=== PATIENT | female | born 1945 | race Caucasian/White ===

== ENCOUNTER 2016-04-11 10:52 | Emergency (ER) | payer MEDICARE ==
[~2016-04-11] VITALS: Ht 167.6 cm; Wt 62.8 kg
[~2016-04-11 10:52] MED LIST: DARV PO; HORMONE PATCH; MACR100C PO; NAPR500 PO; PYRI200T4 PO
[2016-04-11 10:55] VITALS: BP 141/77; PULSE 99; RESP 16; TEMP 98; O2SAT 97
--- NOTE | 2016-04-11 11:22 | PD ---
HPI Chief Complaint: Abnormal Results Time Seen by Provider: 11:01 Travel History International Travel<30 days: No Contact w/Intl Traveler<30days: No Traveled to known affect area: No History of Present Illness HPI The patient was seen and examined in the presence of the nurse. This patient takes Coumadin for A. fib. She has a fingerstick INR machine at home and it read 8 today. 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 She does not have any bleeding complaints or problems. She feels well. Severity is mild. No alleviating factors. Duration one day. She has been going through some Coumadin adjustments and is currently taking 7.5 mg daily PFSH Past Medical History Hx Anticoagulant Therapy: Yes (coumadin) Atrial Fibrillation: Yes Anxiety: Yes High Cholesterol: Yes GERD: Yes (ESOPHAGEAL EROSION) Hypertension: Yes ?: Not Past Surgical History Hysterectomy: Yes Social History Alcohol Use: Yes (2 MARTINIS DAILY) Tobacco Use: No Substance Use: No Allergies-Medications (Allergen,Severity, Reaction): Coded Allergies: Codeine (Verified Allergy, Intermediate, NAUSEA, 04/11/16) Naproxen (Verified Adverse Reaction, Severe, nausea, 04/11/16) Tramadol (Verified Adverse Reaction, Severe, nausea, 04/11/16) Reported Meds & Prescriptions Reported Meds & Active Scripts Active Reported Losartan-Hydrochlorothiazide 100-25 Mg Tab 1 Tab PO DAILY Simvastatin 20 Mg Tab 20 Mg PO HS Atenolol 25 Mg Tab 25 Mg PO HS Warfarin 7.5 Mg Tab 7.5 Mg PO HS Primidone 50 Mg Tab 100 Mg PO HS Omeprazole 20 Mg Tab 20 Mg PO DAILY Doxycycline Hyclate 100 Mg Cap 100 Mg PO BID Xanax (Alprazolam) 0.25 Mg Tab 0.25 Mg PO TID PRN Medrol Dosepak (Methylprednisolone) 4 Mg Dspk 4 Mg PO DIRECTED Per Pharmacist direction Metformin (Metformin HCl) 500 Mg Tab 500 Mg PO BIDPC With meals Gabapentin 100 Mg Cap 200 Mg PO TID Wellbutrin SR 12 HR (Bupropion HCl) 100 Mg Tab 100 Mg PO DAILY Review of Systems General / Constitutional: No: Fever Eyes: No: Visual changes HENT: No: Headaches Cardiovascular: Positive: Irregular Rhythm, No: Chest Pain or Discomfort Respiratory: No: Shortness of Breath Gastrointestinal: No: Abdominal Pain Genitourinary: No: Dysuria Musculoskeletal: No: Pain Skin: No Rash Neurologic: No: Weakness Psychiatric: No: Depression Endocrine: No: Polydipsia Hematologic/Lymphatic: No: Easy Bruising Physical Exam Narrative GENERAL: Well-nourished, well-developed patient in no apparent distress. SKIN: Warm and dry. HEAD: Atraumatic. Normocephalic. EYES: Pupils equal and round. No scleral icterus. No injection or drainage. ENT: No nasal bleeding or discharge. Mucous membranes pink and moist. NECK: Trachea midline. No JVD. CARDIOVASCULAR: Irregularly irregular rhythm. No murmur appreciated. RESPIRATORY: No accessory muscle use. Clear to auscultation. Breath sounds equal bilaterally. GASTROINTESTINAL: Abdomen soft, non-tender, nondistended. Hepatic and splenic margins not palpable. MUSCULOSKELETAL: No obvious deformities. No clubbing. No cyanosis. No edema. NEUROLOGICAL: Awake and alert. No obvious cranial nerve deficits. Motor grossly within normal limits. Normal speech. PSYCHIATRIC: Appropriate mood and affect; insight and judgment normal. Data Data Last Documented VS Vital Signs Date Time Temp Pulse Resp B/P Pulse Ox O2 Delivery O2 Flow Rate FiO2 04/11/16 11:10 99 18 Room Air 04/11/16 10:55 98.0 141/77 97 Orders Prothrombin Time / Inr (Pt) (04/11/16 11:17) Labs Laboratory Tests Test 04/11/16 11:25 Prothrombin Time 103.7 SEC Prothromb Time International 8.5 RATIO Ratio MDM Medical Decision Making Medical Screen Exam Complete: Yes Emergency Medical Condition: Yes Medical Record Reviewed: Yes Differential Diagnosis Supratherapeutic INR, medication side effect, allergic reaction Narrative Course I have reviewed the patient's electronic medical record. INR today on Coumadin is 8.5 She does not have any bleeding As she has no bleeding and an INR less than 10, I recommended she hold Coumadin and let the level drift down. Be careful and cautious and obtain a repeat INR in a couple of days. Diagnosis Primary Impression: Supratherapeutic INR Additional Instructions: Be careful and cautious with an elevated INR Obtain repeat INR from your physician in a couple of days Do not take Coumadin Med/Other Pt SpecificInfo: Other Disposition: 01 DISCHARGE HOME Condition: Stable Shaun Gonzalez MD Apr 11, 2016 11:21
[2016-04-11] MEDS ORDERED: BUPR100CR PO (11:30)
[2016-04-11] MEDS ORDERED: GABA100C4 PO (11:30)
[2016-04-11] MEDS ORDERED: METF500T PO (11:30)
[2016-04-11] MEDS ORDERED: ALPR.25 PO (11:31)
[2016-04-11] MEDS ORDERED: SIMV20TA PO (11:31)
[2016-04-11] MEDS ORDERED: ATEN25TA PO (11:31)
[2016-04-11] MEDS ORDERED: OMEP20TA PO (11:31)
[2016-04-11] MEDS ORDERED: MEDR4PAK PO (11:31)
[2016-04-11] MEDS ORDERED: LOSA100T2 PO (11:31)
[2016-04-11] MEDS ORDERED: WARF-21 PO (11:31)
[2016-04-11] MEDS ORDERED: PRIM50TA5 PO (11:31)
[2016-04-11] MEDS ORDERED: DOXY100C PO (11:31)
[2016-04-11 11:54] LABS: PROTHROMBIN TIME - PATIENT 103.7 SEC (9.8-11.6)
[2016-04-11 11:57] LABS: INTERNATIONAL NORMALIZED RATIO 8.5 RATIO
== END 2016-04-11 13:47 | disposition home or self-care (01) ==
LOC: PHED 10:52
DX: R79.1 Abnormal coagulation profile (principal); I48.91 Unspecified atrial fibrillation; I10 Essential (primary) hypertension; Z79.01 Long term (current) use of anticoagulants
CPT/HCPCS: 85610; 99283

== ENCOUNTER 2016-09-04 21:24 | Emergency (ER) | payer MEDICARE ==
[~2016-09-04] VITALS: Ht 167.6 cm; Wt 62.5 kg
[~2016-09-04 21:24] MED LIST changes: +ALPR.25 PO; +ATEN25TA PO; +BUPR100CR PO; -DARV PO; +DOXY100C PO; +GABA100C4 PO; -HORMONE PATCH; +LOSA100T2 PO; -MACR100C PO; +MEDR4PAK PO; +METF500T PO; -NAPR500 PO; +OMEP20TA PO; +PRIM50TA5 PO; -PYRI200T4 PO; +SIMV20TA PO; +WARF-21 PO
[2016-09-04 21:59] VITALS: BP 116/70; PULSE 69; RESP 18; TEMP 98; O2SAT 97
[2016-09-04] MEDS ORDERED: ESTR0.62 VAGINAL (22:31)
[2016-09-04] MEDS ORDERED: TOPI1TAB97 PO (22:31)
--- NOTE | 2016-09-04 22:57 | PD ---
HPI Chief Complaint: Abdominal Pain Time Seen by Provider: 22:51 Travel History International Travel<30 days: No Contact w/Intl Traveler<30days: No Traveled to known affect area: No History of Present Illness HPI 71-year-old female presents to the emergency department for complaint of progressively worsening left lower quadrant abdominal pain and intermittent upper abdominal pain times one week. Patient is currently taking Cipro for urinary tract infection and was seen by her urologist this week. Patient completes her course of Cipro on Thursday and then will go on maintenance suppressant low-dose antibiotic times one month. Patient denies fever chills has had nausea no vomiting or diarrhea. Patient rates left lower quadrant abdominal pain 5/10 in intensity. Patient denies any flank pain dysuria frequency urgency hematuria or vaginal discharge. Patient is status post hysterectomy. Patient has had no injury or fall. Patient is unable to identify exacerbating or alleviating factors. Patient states that she fell and became tired of having ongoing pain and decided to come to the emergency room at this time for further evaluation. [facility] Past Medical History Narrative Medical Coumadin therapy, anxiety, arthritis, atrial fibrillation, dyslipidemia, GERD, recurrent UTI, hysterectomy; occasional alcohol use; nursing notes reviewed Hx Anticoagulant Therapy: Yes (coumadin) Atrial Fibrillation: Yes Anxiety: Yes Heart Rhythm Problems: Yes (AFIB) High Cholesterol: Yes Diminished Hearing: No GERD: Yes (ESOPHAGEAL EROSION) Hypertension: Yes Past Surgical History Hysterectomy: Yes Social History Alcohol Use: Yes (OCC) Tobacco Use: No (NEVER) Substance Use: No Allergies-Medications (Allergen,Severity, Reaction): Coded Allergies: Codeine (Verified Allergy, Intermediate, NAUSEA, 09/04/16) Naproxen (Verified Adverse Reaction, Severe, nausea, 09/04/16) Tramadol (Verified Adverse Reaction, Severe, nausea, 09/04/16) Reported Meds & Prescriptions Reported Meds & Active Scripts Active Reported Premarin Vaginal (Estrogens, Conjugated Vaginal) 0.625 Mg/Gm Cream 1 Gm VAGINAL DAILY Topiramate 25 Mg Tab 25 Mg PO DAILY Losartan-Hydrochlorothiazide 100-25 Mg Tab 1 Tab PO DAILY Simvastatin 20 Mg Tab 20 Mg PO HS Atenolol 25 Mg Tab 25 Mg PO HS Warfarin 7.5 Mg Tab 5 Mg PO HS Primidone 50 Mg Tab 100 Mg PO HS Omeprazole 20 Mg Tab 20 Mg PO DAILY Xanax (Alprazolam) 0.25 Mg Tab 0.5 Mg PO TID PRN Metformin (Metformin HCl) 500 Mg Tab 500 Mg PO BIDPC With meals Gabapentin 100 Mg Cap 200 Mg PO TID Wellbutrin SR 12 HR (Bupropion HCl) 100 Mg Tab 100 Mg PO DAILY Review of Systems Except as stated in HPI: all other systems reviewed are Neg General / Constitutional: No: Fever, Chills HENT: No: Congestion Cardiovascular: No: Chest Pain or Discomfort, Palpitations, Diaphoresis, Syncope, Dyspnea on exertion, Edema Respiratory: No: Cough, Shortness of Breath, Wheezing Gastrointestinal: Positive: Nausea, Abdominal Pain, Constipation, No: Vomiting , Diarrhea, Hematemesis, Hematochezia, Loss of Appetite Genitourinary: No: Urgency, Frequency, Dysuria, Pelvic Pain, Flank Pain Musculoskeletal: No: Myalgias, Arthralgias Skin: No Rash Neurologic: No: Weakness Psychiatric: Positive: Anxiety Endocrine: No: Heat Intolerance, Cold Intolerance Hematologic/Lymphatic: No: Easy Bruising Physical Exam Narrative GENERAL: Well-developed well-nourished female in acute distress no respiratory distress SKIN: Warm and dry. HEAD: Normocephalic. EYES: No scleral icterus. No injection or drainage. NECK: Supple, trachea midline. No JVD or lymphadenopathy. CARDIOVASCULAR: Regular rate and rhythm without murmurs, gallops, or rubs. RESPIRATORY: Breath sounds equal bilaterally. No accessory muscle use. GASTROINTESTINAL: Abdomen soft, left lower quadrant tenderness to palpation without guarding or rebound or palpable pulsatile mass, nondistended. MUSCULOSKELETAL: No cyanosis, or edema. BACK: Nontender without obvious deformity. No CVA tenderness. Data Data Last Documented VS Vital Signs Date Time Temp Pulse Resp B/P Pulse Ox O2 Delivery O2 Flow Rate FiO2 09/04/16 23:32 84 17 114/61 100 Room Air 09/04/16 21:59 98.0 Orders Complete Blood Count With Diff (09/04/16 22:51) Comprehensive Metabolic Panel (09/04/16 22:51) Lipase (09/04/16 22:51) Lactic Acid (09/04/16 22:51) Urinalysis - C+S If Indicated (09/04/16 22:51) Ct Abd/Pel W Iv Contrast(Rout) (09/04/16 22:51) Iv Access Insert/Monitor (09/04/16 22:51) Ecg Monitoring (09/04/16 22:51) Oximetry (09/04/16 22:51) Ondansetron Inj (Zofran Inj) (09/04/16 23:00) Sodium Chloride 0.9% Flush (Ns Flush) (09/04/16 23:00) Sodium Chlor 0.9% 1000 Ml Inj (Ns 1000 M (09/04/16 23:00) Prothrombin Time / Inr (Pt) (09/04/16 22:51) Iohexol 350 Inj (Omnipaque 350 Inj) (09/05/16 00:08) Labs Laboratory Tests Test 09/04/16 23:05 White Blood Count 7.1 TH/MM3 Red Blood Count 4.55 MIL/MM3 Hemoglobin 13.6 GM/DL Hematocrit 40.5 % Mean Corpuscular Volume 89.2 FL Mean Corpuscular Hemoglobin 30.0 PG Mean Corpuscular Hemoglobin 33.6 % Concent Red Cell Distribution Width 12.9 % Platelet Count 231 TH/MM3 Mean Platelet Volume 8.5 FL Neutrophils (%) (Auto) 57.9 % Lymphocytes (%) (Auto) 31.2 % Monocytes (%) (Auto) 7.3 % Eosinophils (%) (Auto) 2.1 % Basophils (%) (Auto) 1.5 % Neutrophils # (Auto) 4.2 TH/MM3 Lymphocytes # (Auto) 2.2 TH/MM3 Monocytes # (Auto) 0.5 TH/MM3 Eosinophils # (Auto) 0.1 TH/MM3 Basophils # (Auto) 0.1 TH/MM3 CBC Comment DIFF FINAL Differential Comment Prothrombin Time 28.0 SEC Prothromb Time International 2.4 RATIO Ratio Urine Color YELLOW Urine Turbidity SLIGHT Urine pH 6.5 Urine Specific [place] 1.012 Urine Protein NEG mg/dL Urine Glucose (UA) NEG mg/dL Urine Ketones NEG mg/dL Urine Occult Blood NEG Urine Nitrite NEG Urine Bilirubin NEG Urine Leukocyte Esterase TRACE Urine RBC 0-3 /hpf Urine WBC 3-5 /hpf Urine Squamous Epithelial > 8 /hpf Cells Urine Bacteria OCC /hpf Microscopic Urinalysis Comment CULT NOT INDICATED Sodium Level 135 MEQ/L Potassium Level 3.8 MEQ/L Chloride Level 97 MEQ/L Carbon Dioxide Level 28.9 MEQ/L Anion Gap 9 MEQ/L Blood Urea Nitrogen 15 MG/DL Creatinine 1.00 MG/DL Estimat Glomerular Filtration 55 ML/MIN Rate Random Glucose 95 MG/DL Lactic Acid Level 3.1 mmol/L Calcium Level 8.5 MG/DL Total Bilirubin 0.4 MG/DL Aspartate Amino Transf 31 U/L (AST/SGOT) Alanine Aminotransferase 29 U/L (ALT/SGPT) Alkaline Phosphatase 89 U/L Total Protein 6.7 GM/DL Albumin 3.3 GM/DL Lipase 139 U/L MDM Medical Decision Making Medical Screen Exam Complete: Yes Emergency Medical Condition: Yes Medical Record Reviewed: Yes Interpretation(s) CBC & BMP Diagram 09/04/16 23:05 Vital Signs Date Time Temp Pulse Resp B/P Pulse Ox O2 Delivery O2 Flow Rate FiO2 09/04/16 23:32 84 17 114/61 100 Room Air 09/04/16 22:18 09/04/16 21:59 98.0 69 18 116/70 97 UA few bacteria; cx not indicated Last Impressions Abdomen/Pelvis CT 09/04/16 [id number] Signed Impressions: Service Date/Time: , September 04, 2016 23:45 - CONCLUSION: 1. Diverticulosis without diverticulitis. 2. No inflammatory changes are seen within the abdomen or pelvis. 3. Atherosclerosis. 4. 5. Low-density liver lesions. Follow-up imaging in six months, using CT or MRI without and with contrast is recommended for incidentally detected liver lesions in average risk individuals when lesions are characterized by diameter of 0.5-1.5 cm, low attenuation, and some non-benign characteristics (such as ill-defined margins, enhancement >20 HU, heterogeneous density, or enlargement). This patient is classified as average risk based on the reported history, including age >40 and absence of hepatic risk factors/symptoms or reported abnormal liver function tests. These general recommendations do not apply to all patients, so that correlation with clinical information is required. Reference: 6. Dmitriland LL , Celena SG, [place] RM et al; Managing Incidental Findings on Abdominal CT: White Paper of the ACR Incidental Findings Committee. J Am Doris Radiol 2010;7:754-773. Robson Lock MD Differential Diagnosis UTI, pyelonephritis, diverticulitis, colitis, constipation, Coumadin coagulopathy Narrative Course IV access obtained specimen collected and sent for resulting; patient administered Zofran; CT imaging study order At 1:10 AM patient resting comfortably voicing no concerns or complaints no abdominal discomfort patient is informed of lab results urinalysis results and imaging results and encouraged to follow closely with her primary care provider regarding MRI for follow-up of identified liver lesions found by CT imaging. INR is therapeutic. Diagnosis Primary Impression: Abdominal pain Qualified Code: R10.84 - Generalized abdominal pain Additional Impressions: Liver lesion Anticoagulation goal of INR 2.0 to 2.5 Referrals: Primary Care Physician 1 day Patient Instructions: General Instructions Additional Instructions: Increase fluid hydration Follow-up with primary care provider Return to the emergency department for any concerns or change in condition Take medication as prescribed as needed for intestinal spasm Med/Other Pt SpecificInfo: Prescription(s) given Scripts Hyoscyamine (Levsin)0.125 Mg Tab0.125 Mg PO Q6H #7 TAB Ref 0 Prov:Elli Burdick MD 09/05/16 Disposition: 01 DISCHARGE HOME Condition: Stable Elli Burdick MD Sep 04, 2016 22:57
[2016-09-04] MEDS ORDERED: SODIUM CHLORIDE 0.9% FLUSH 10 ML FLUSH IV FLUSH PRN (23:00)
[2016-09-04] MEDS ORDERED: SODIUM CHLOR 0.9% 1000 ML INJ 1,000 ML IV ONE (23:00)
[2016-09-04] MEDS ORDERED: ONDANSETRON HCL 4 MG/2 ML VIAL IVP ONE (23:00)
[2016-09-04 23:20] LABS: BLOOD, URINE NEG (NEG); GLUCOSE,URINE NEG (NEG); KETONE, URINE NEG (NEG); NITRITE,URINE NEG (NEG); PH, URINE 6.5 (5.0-8.5)
[2016-09-04 23:26] LABS: AUTOMATED NEUTROPHIL # 4.2 TH/MM3 (1.8-7.7); BASOPHIL # 0.1 TH/MM3 (0-0.2); BASOPHIL % 1.5 % (0.0-2.0); EOSINOPHIL # 0.1 TH/MM3 (0-0.4); EOSINOPHIL % 2.1 % (0.0-4.0); HEMATOCRIT 40.5 % (35.0-46.0); HEMO FLAGS DIFF FINAL; LYMPH % 31.2 % (9.0-44.0); LYMPHOCYTE # 2.2 TH/MM3 (1.0-4.8); MEAN CELL VOLUME 89.2 FL (80.0-100.0); MEAN CORPUSCULAR HGB CONC 33.6 % (32.0-36.0); MONO % 7.3 % (0.0-8.0); NEUT % 57.9 % (16.0-70.0); PLATELET COUNT 231 TH/MM3 (150-450); RED BLOOD COUNT 4.55 MIL/MM3 (4.00-5.30); RED CELL DISTRIBUTION WIDTH 12.9 % (11.6-17.2); WHITE BLOOD COUNT 7.1 TH/MM3 (4.0-11.0)
[2016-09-04 23:27] LABS: CHLORIDE 97 MEQ/L (98-107); SODIUM (NA) 135 MEQ/L (136-145)
[2016-09-04 23:30] LABS: INTERNATIONAL NORMALIZED RATIO 2.4 RATIO; POTASSIUM 3.8 MEQ/L (3.5-5.1)
[2016-09-04 23:31] LABS: ANION GAP 9 MEQ/L (5-15); BICARBONATE 28.9 MEQ/L (21.0-32.0); BLOOD UREA NITROGEN 15 MG/DL (7-18)
[2016-09-04 23:32] VITALS: BP 114/61; PULSE 84; RESP 17; O2SAT 100
[2016-09-04 23:33] LABS: ALT (GPT) 29 U/L (10-53)
[2016-09-04 23:34] LABS: AST (GOT) 31 U/L (15-37); BACTERIA, URINE OCC /hpf; COMMENT (UR) CULT NOT INDICATED; CULTURE IF INDICATED CULT NOT INDICATED; GLOMERULAR FILTRATION RATE 55 ML/MIN (>89); RBC, URINE 0-3 /hpf (0-3); SQUAMOUS EPITHELIAL CELL URINE > 8 /hpf (0-5); URINE COLOR YELLOW (YELLW/STRAW)
[2016-09-04 23:36] LABS: ALKALINE PHOSPHATASE 89 U/L (45-117)
[2016-09-04 23:39] LABS: TOTAL BILIRUBIN ADULT 0.4 MG/DL (0.2-1.0)
[2016-09-05] MEDS ORDERED: IOHEXOL 350 MG/ML 10 ML VIAL (for RAD DIAG) IV ONE (00:08)
--- NOTE | 2016-09-05 00:23 | RADRPT ---
EXAM DATE/TIME: 09/04/2016 23:45 [place] COMPARISON: No previous studies available for comparison. INDICATIONS : Abdominal pain for one month IV CONTRAST: 96 cc Omnipaque 350 (iohexol) IV ORAL CONTRAST: No oral contrast ingested. RADIATION DOSE: 6.92 CTDIvol (mGy) MEDICAL HISTORY : Cardiovascular disease. Gastroesophageal reflux disease. coumadin SURGICAL HISTORY : Hysterectomy. ENCOUNTER: Initial ACUITY: 1 month PAIN SCALE: 8/10 LOCATION: Left flank abdominal TECHNIQUE: Volumetric scanning of the abdomen and pelvis was performed. Using automated exposure control and ad justment of the mA and/or kV according to patient size, radiation dose was kept as low as reasonably achievable to obtain optimal diagnostic quality images. DICOM format image data is available electro nically for review and comparison. FINDINGS: Patient is status post hysterectomy. There is a low-density lesion in the right lobe of the liver pos teriorly measuring 7.1 mm on image 30. In addition a tiny low-density lesion in the left lobe superio rly measuring 3.2 mm on image 11. Spleen, pancreas, kidneys, adrenal glands, stomach, urinary bladder , small bowel unremarkable. There are scattered diverticuli without diverticulitis. Atherosclerotic c alcification of the aorta and iliac vessels are identified without evidence of aneurysm. No adenopath y. Stomach unremarkable. No free fluid or free air. There are degenerative changes of the spine. Lung bases are clear. CONCLUSION: 1. Diverticulosis without diverticulitis. 2. No inflammatory changes are seen within the abdomen or pelvis. 3. Atherosclerosis. 4. 5. Low-density liver lesions. Follow-up imaging in six months, using CT or MRI without and with cont rast is recommended for incidentally detected liver lesions in average risk individuals when lesions are characterized by diameter of 0.5-1.5 cm, low attenuation, and some non-benign characteristics (hall ch as ill-defined margins, enhancement >20 HU, heterogeneous density, or enlargement). This patient is classified as average risk based on the reported history, including age >40 and absence of hepatic risk factors/symptoms or reported abnormal liver function tests. These general recommendations do n ot apply to all patients, so that correlation with clinical information is required. Reference: 6. John LL, Celena SG, Bert HANNA et al; Managing Incidental Findings on Abdominal CT: Nikki grimes of the ACR Incidental Findings Committee. J Am Doris Radiol 2010;7:754-773. Robson Lock MD on September 05, 2016 at 0:19 Board Certified Radiologist. This report was verified electronically.
[2016-09-05 00:45] VITALS: BP 110/58; PULSE 66; RESP 17; TEMP 97.8; O2SAT 99
[2016-09-05] MEDS ORDERED: LEVS0.123 PO (01:08)
== END 2016-09-05 01:25 | disposition home or self-care (01) ==
LOC: PHED 21:24
DX: R10.84 Generalized abdominal pain (principal); K76.9 Liver disease, unspecified; I48.91 Unspecified atrial fibrillation; I10 Essential (primary) hypertension; Z79.01 Long term (current) use of anticoagulants
CPT/HCPCS: 74177; 80053; 81001; 83605; 83690; 85025; 85610; 96361; 96374; 99285; J2405; J7030; Q9967